=== PATIENT | male | born 1960 | race Caucasian/White ===

== ENCOUNTER 2018-06-12 10:11 | Day surgery (SDC) | payer OTHER ==
[2018-06-11 09:58] VITALS: BMI 35.9
--- NOTE | 2018-06-12 12:08 | OP ---
DATE OF PROCEDURE: 06/12/2018 [employer] SURGEON: None. PROCEDURE PERFORMED: Colonoscopy, average risk screening. This is the patient's first colonoscopy. MEDICATIONS: See Anesthesia record. FINDINGS: After discussion of the risks, benefits, and alternatives of the procedure, informed consent was obtained and witnessed. Pre-endoscopic cardiopulmonary examination was satisfactory. A time-out was performed before sedation was achieved. Sedation was achieved with Anesthesia assistance in the Endoscopy Unit. Digital rectal exam was performed, which was unremarkable. A Pentax adult colonoscope was inserted into the anus and passed forward to the cecum in the usual fashion. The cecal base was identified by the appendiceal orifice as well as the ileocecal valve. The terminal ileum was not intubated. The colonoscope was slowly withdrawn in a gradual circumferential manner with careful examination of the entire colonic mucosa. The quality of the prep was good. The colonic mucosa appeared normal throughout. Retroflexion in the rectum was unremarkable. The colonoscope was completely withdrawn and the patient allowed to recover. The patient tolerated the procedure well. There were no immediate postprocedure complications. IMPRESSION: Normal colonoscopy to the cecum. RECOMMENDATION: Repeat colonoscopy for screening in 10 years. Job ID: [id number]
[2018-06-12] MEDS ORDERED: PROPOFOL 200 MG/20 ML VIAL ONE (16:56)
== END 2018-06-12 13:05 | disposition home or self-care (01) ==
LOC: SDC 10:11
PROVIDERS: ATTEND Internal Medicine
PROC: 0DJD8ZZ Inspection of Lower Intestinal Tract, Via Natural or Artificial Opening Endoscopic (ICD-10-PCS; principal; 2018-06-12)
DX: Z12.11 Encounter for screening for malignant neoplasm of colon (principal); G47.33 Obstructive sleep apnea (adult) (pediatric); E78.5 Hyperlipidemia, unspecified; E66.01 Morbid (severe) obesity due to excess calories; Z68.35 Body mass index [BMI] 35.0-35.9, adult; Z87.891 Personal history of nicotine dependence; Z79.84 Long term (current) use of oral hypoglycemic drugs; Z79.899 Other long term (current) drug therapy
CPT/HCPCS: J2704

== ENCOUNTER 2018-08-10 13:44 | Outpatient (CLI) | payer OTHER ==
--- NOTE | 2018-08-10 14:31 | RAD ---
LEFT KNEE 3 VIEWS: Date: 08/10/18 HISTORY: Left knee pain. FINDINGS/IMPRESSION: Degenerative and osteoarthrosis changes with narrowing most marked involving the medial compartment. No fracture or dislocation. POS: [facility]
== END 2018-08-10 13:45 | disposition home or self-care (01) ==
LOC: BICRAD 13:44
PROVIDERS: ATTEND Family Medicine
DX: M25.562 Pain in left knee (principal); M17.12 Unilateral primary osteoarthritis, left knee